=== PATIENT | female | born 1975 | race Caucasian/White ===

== ENCOUNTER 2018-05-27 05:40 | Emergency (ER) | payer BC ==
[2018-05-27 06:27] VITALS: BP 126/54
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
[2018-05-27] MEDS ORDERED: Lactated Ringers 1,000 ML IV ONE (06:59)
[2018-05-27] MEDS ORDERED: Ondansetron 4 MG/2 ML SDV IVPUSH ONE (06:59)
== END 2018-05-27 08:44 | disposition home or self-care (01) ==
LOC: JD.ED 05:40
DX: K52.9 Noninfective gastroenteritis and colitis, unspecified (principal); F17.210 Nicotine dependence, cigarettes, uncomplicated
CPT/HCPCS: 36415; 80053; 81001; 81025; 83690; 85007; 85027; 96361; 96374; 99284; J2405; J7120

== ENCOUNTER 2019-04-27 19:25 | Emergency (ER) | payer BC ==
[2019-04-27 19:34] VITALS: BP 124/50
--- NOTE | 2019-04-27 19:54 | EDM.PDOC ---
ED HPI GENERAL MEDICAL PROBLEM - General Chief Complaint: ENT Problem Stated Complaint: COUGH, EAR,THROAT FELLS LIKE KNIFES STABBING IT Time Seen by Provider: 04/27/19 19:34 Source of Information: Reports: Patient, RN Notes Reviewed History Limitations: Reports: No Limitations - History of Present Illness INITIAL COMMENTS - FREE TEXT/NARRATIVE: Patient is a 43-year-old female who presents to the ED for evaluation of a sore throat and cough. The patient notes that this is the third time in the last month that this has happened. She states that she developed a sore throat, and then a cough, and then ear pain. She feels like someone is stabbing knives into her throat. She has been taking Claritin on a regular basis along with Chloraseptic spray to provide pain relief, however this is not providing much pain relief. She states it hurts to swallow as well. She does not believe that she has had any fevers but does note some slight chills, and she does feel a little bit more lethargic than she normally is. She has not been taking any other pain medication such as ibuprofen or Tylenol for this. Generalized Pain Score (Numeric/FACES): 8 - Related Data Allergies Allergy/AdvReac Type Severity Reaction Status Date / Time No Known Allergies Allergy Verified 05/27/18 06:24 Home Meds: Home Meds FLUoxetine HCl [Fluoxetine] 20 mg PO DAILY 04/27/19 [History] buPROPion [Wellbutrin] 50 mg PO DAILY 04/27/19 [History] Past Medical History HEENT History: Reports: Impaired Vision [employer] History: Reports: Psychiatric History: Reports: Anxiety - Past Surgical History HEENT Surgical History: Reports: Tonsillectomy GI Surgical History: Reports: Cholecystectomy Social & Family History - Tobacco Use Smoking Status *Q: Former Smoker Used Tobacco, but Quit: Yes Month/Year Tobacco Last Used: November 2018 - Caffeine Use Caffeine Use: Reports: Coffee - Recreational Drug Use Recreational Drug Use: No ED ROS ENT - Review of Systems Review Of Systems: See Below Constitutional: Reports: Chills. Denies: Fever HEENT: Reports: Throat Pain. Denies: Throat Swelling Respiratory: Reports: Cough. Denies: Shortness of Breath, Wheezing, Sputum Cardiovascular: Reports: No Symptoms Endocrine: Reports: No Symptoms GI/Abdominal: Reports: No Symptoms : Reports: No Symptoms Musculoskeletal: Reports: No Symptoms Skin: Reports: No Symptoms Neurological: Reports: No Symptoms Psychiatric: Reports: No Symptoms Hematologic/Lymphatic: Reports: No Symptoms Immunologic: Reports: No Symptoms ED EXAM, ENT - Physical Exam Exam: See Below Exam Limited By: No Limitations General Appearance: Alert, WD/WN, No Apparent Distress Eye Exam: Bilateral Eye: EOMI, Normal Inspection, PERRL Ears: Normal External Exam, Normal Canal, Hearing Grossly Normal, Normal TMs, TM Fluid (clear TM fluid bilaterally) Nose: Normal Inspection, Normal Mucousa, No Blood, Nasal Discharge (dried mucus secretions) Mouth/Throat: Normal Inspection, Normal Gums, Normal Lips, Normal Oropharynx, Normal Teeth, Pharyngeal Erythema. No: Tonsillar Erythema, Tonsillar Exudates, Tonsillar Swelling, Trismus Head: Atraumatic, Normocephalic Neck: Normal Inspection, Supple, Non-Tender, Full Range of Motion Respiratory/Chest: No Respiratory Distress, Lungs Clear, Normal Breath Sounds, No Accessory Muscle Use, Chest Non-Tender Cardiovascular: Normal Peripheral Pulses, Regular Rate, Rhythm, No Murmur Neurological: Alert, Oriented, Normal Cognition, No Motor/Sensory Deficits Psychiatric: Normal Affect, Normal Mood Skin: Warm, Dry, Intact, Normal Color, No Rash Course - Vital Signs Last Recorded V/S: Last Vital Signs Temp 98.6 F 04/27/19 19:31 Pulse 81 04/27/19 19:31 Resp 18 04/27/19 19:31 BP 124/50 L 04/27/19 19:33 Pulse Ox 98 04/27/19 19:31 - Orders/Labs/Meds Orders: Active Orders 24 hr Category Date Time Status CULTURE STREP A CONFIRMATION [RM] Stat Lab 04/27/19 19:35 Results STREP SCRN A RAPID W CULT CONF [RM] Stat Lab 04/27/19 19:35 Results Labs: Laboratory Tests 04/27/19 Range/Units 20:05 Monoscreen Negative (NEGATIVE) - Re-Assessments/Exams Free Text/Narrative Re-Assessment/Exam: 04/27/19 19:55 Patient presents to the ED for evaluation of sore throat, cough, ear pain. I have ordered a strep screen, mono test for further evaluation. This might just be a viral illness in nature, that she keeps passing from her children to her and her to her children. She notes her children have been sick as well. Departure - Departure Time of Disposition: 21:03 Disposition: Home, Self-Care 01 Condition: Fair Clinical Impression: Viral URI with cough - Discharge Information *PRESCRIPTION DRUG MONITORING PROGRAM REVIEWED*: No *COPY OF PRESCRIPTION DRUG MONITORING REPORT IN PATIENT JANET: No Instructions: Viral Respiratory Infection, [id number], Sore Throat, Easy-to- Read Referrals: Karlie Espinosa PA [Primary Care Provider] - Forms: ED Department Discharge Additional Instructions: You have been evaluated in the ED today for your cold like symptoms, cough, and sore throat. This is likely a viral illness in etiology. Your rapid strep screen was negative for strep at this time, however this will be sent for culture for confirmation, this needs 24 hours to grow, You will be notified if you should need treatment for strep if it should grow out on the culture. Your mono-screen was negative. Please increase your fluid intake. Get plenty of rest as well. You should feel better in a few days. Recommend that you wipe household surfaces with antiviral cleaning cloths such as Lysol, to try to cut down on the amount of viruses in your home, as this seems to be passing back and forth between yourself an your children. Recommend that you take some [id number] nasal decongestants, cough/cold remedies to combat this. Medicines like NyQuil, DayQuil, phenylephrine and other sinus decongestants are adequate. You may also take 400-600 mg ibuprofen every 6 hours as needed for further pain relief. You may also try saline nasal irrigation, or nasal steroids such as Flonase, may provide you further relief from the fluid behind your ears. If your symptoms are not better in one week's time recommend that you follow up in a clinic or your primary care provider. Please return to the ED if your symptoms change or worsen. - My Orders Last 24 Hours: My Active Orders 04/27/19 19:35 CULTURE STREP A CONFIRMATION [RM] Stat STREP SCRN A RAPID W CULT CONF [RM] Stat - Assessment/Plan Last 24 Hours: My Active Orders 04/27/19 19:35 CULTURE STREP A CONFIRMATION [RM] Stat STREP SCRN A RAPID W CULT CONF [RM] Stat
== END 2019-04-27 21:15 | disposition home or self-care (01) ==
LOC: JD.ED 19:25
DX: J06.9 Acute upper respiratory infection, unspecified (principal); F41.9 Anxiety disorder, unspecified; Z79.899 Other long term (current) drug therapy; Z87.891 Personal history of nicotine dependence
CPT/HCPCS: 36415; 86308; 87081; 87430; 99283